=== PATIENT | female | born 1975 | race Caucasian/White ===

== ENCOUNTER 2018-06-06 05:13 | Observation (INO) ==
[2018-06-06] MEDS ORDERED: ceFAZolin 2 GM IV; once IV.SIG PRN (05:27)
[2018-06-06] MEDS ORDERED: Gabapentin 300 MG Capsule PO PRN (05:28)
[2018-06-06] MEDS ORDERED: Chlorhexidine Gluconate 2% 1 Pack (2 Cloths) TOPICAL ONE (05:30)
[2018-06-06] MEDS ORDERED: Metoprolol Tartrate 25 MG Tablet PO ONE (05:30)
[2018-06-06] MEDS ORDERED: Sodium Chlor 0.9% Inj 500 ML IV.SIG SCH (06:00)
[2018-06-06] MEDS ORDERED: Sugammadex Inj 200 MG/2 ML Vial IV.PUSH ONE (06:50)
[2018-06-06] MEDS ORDERED: Lidocaine 1%/Epinephrine 1:100,000 Inj 30 ML Vial ONE (07:35)
[2018-06-06] MEDS ORDERED: Phenylephrine/NS 1000 MCG/10ML Syringe IV.PUSH ONE (07:35)
[2018-06-06] MEDS ORDERED: Lidocaine PF 1% Inj 5 ML Syringe OTHER ONE (07:35)
[2018-06-06] MEDS ORDERED: Zolpidem Tartrate 5 MG Tablet PO PRN (11:13)
--- NOTE | 2018-06-06 11:13 | P.OP ---
Date of procedure: 06/06/18 Surgeon: Mani Gardiner MD Operation and Findings: Preoperative diagnosis: 1. Enlarged fibroid uterus 2. Heavy menstrual bleeding 3. Anemia Postop diagnosis 1. Same as above status post hysterectomy Procedure 1. Total laparoscopic hysterectomy, bilateral salpingectomy, diagnostic cystoscopy 2. Lysis of adhesions greater than [address] Mani Gardiner Interventional Radiology Rn: Dr. Jill Salinas was present and scrubbed throughout the case, also [place] OR scrub staff assisted Findings: 1. Enlarged fibroid uterus, weighing approximately 600 g, normal appearing otherwise, normal fallopian tubes and ovaries bilaterally. Pelvis with adhesions of the sigmoid densely adhered to the left pelvic brim. Otherwise pelvis and abdomen free of adhesions. 2. Normal-appearing liver and gallbladder, nonvisualized appendix 3. Normal cystoscopy, bilateral ureteral efflux appreciated Anesthesia: General endotracheal Specimen: Uterus, cervix, fallopian tubes to pathology together, routine Estimated blood loss: 1 L Fluid replacement: 1700 cc lactated Ringer's Urine output: 800 cc clear urine DVT prophylaxis: Sequential compression devices throughout the case Antibiotics: 2 g Ancef, however this was given greater than 60 minutes prior to incision, 2 g Ancef was redosed at 4 hours. Counts: correct x2 Time out done: yes Disposition: Stable to PACU Indications: This patient is a 42-year-old who was seen in outpatient setting for the above diagnoses, we discussed options and she elected for the above procedure. Please see H&P and consent for further details. Description of procedure: The patient was taken to the operating room and placed under general anesthesia she was positioned in lithotomy position with Sha stirrups with both arms tucked. The abdomen and vagina were prepped and draped in sterile fashion. A Cruz was inserted. Uterus was sounded to 11 cm a large V care manipulator was placed with a suture applied to the cervix for traction. Attention was turned to the abdomen. A total of 15 cc of 1% lidocaine with epinephrine was used for each port site. A 5 mm umbilical incision was made and with direct optical view technique the abdomen was entered and insufflated with CO2 gas, the patient was placed in Trendelenburg. 2 left lower quadrant and one right lower quadrant 5 mm trocars were inserted with direct intra abdominal visualization. A survey was performed with the above findings. A bilateral salpingectomy was performed using the Enseal and the specimens were removed from the abdomen. Some adhesions were lysed of the sigmoid colon the left pelvic brim easily with the Enseal device. The left round ligament was transected and the anterior broad ligament opened and a bladder flap was developed with the Enseal and the same was done on the contralateral side. The posterior broad ligament was opened and the uterine arteries were skeletonized. The uterine arteries were clamped desiccated and transected with the Enseal bilaterally. Using monopolar energy a colpotomy was made. The umbilical skin site was extended approximately 3 cm vertically as well as the fascia, a standard size gel point device with Lee retractor were inserted and applied and the uterus was placed within a [employer] containment bag. The bag was elevated to the umbilicus and hand morcellated using a ExCITE technique. The vaginal cuff was closed with running 2-0 unidirectional strata fix suture incorporating the uterosacrals for support. The abdomen was irrigated and the surgical sites were found to be hemostatic. A cystoscopy was performed with a 30 laparoscope using normal saline. No damage to the bladder was appreciated and bilateral efflux was noted. The Cruz was left removed the abdomen was desufflated and the trocars removed. The fascia at the umbilicus was closed with running 0 Vicryl and the skin of all sites was closed with 4-0 Monocryl and skin glue applied overlying. The patient was awoken from anesthesia and transferred to PACU.
[2018-06-06] MEDS ORDERED: Morphine Sulfate Inj 8 MG/ML Vial IV.PUSH PRN (11:16)
[2018-06-06] MEDS ORDERED: Ketorolac Inj 30 MG/ML (IVP) Vial IV.PUSH ONE (11:16)
[2018-06-06] MEDS ORDERED: Acetaminophen 325 MG Tablet PO PRN (11:16)
[2018-06-06] MEDS ORDERED: fentaNYL Citrate Inj 100 MCG/2 ML Ampul ONE (11:30)
[2018-06-06] MEDS ORDERED: *Meperidine Inj 25 MG/ML Vial PERIprocedural Use ONLY ONE (11:32)
[2018-06-06 11:39] VITALS: RESP 18
[2018-06-06] MEDS ORDERED: Ketorolac Inj 30 MG/ML (IVP) Vial ONE (11:41)
[2018-06-06 11:57] LABS: Hematocrit 29.8 % (35.0-46.0); Hemoglobin 10.1 gm/dL (11.6-15.3)
[2018-06-06 12:59] VITALS: PULSE 96; O2SAT 98
[2018-06-06] MEDS ORDERED: Gabapentin 100 MG Capsule PO SCH (13:00)
[2018-06-06] MEDS ORDERED: Ketorolac Inj 30 MG/ML (IVP) Vial IV.PUSH SCH (18:00)
--- NOTE | 2018-06-06 19:23 | P.PNOB ---
Assessment and Plan - Postoperative Procedures Operation Date: 06/06/18 07:30 Actual Procedures Side Surgeon p TOTAL LAPAROSCOPIC HYSTERECTOMY, BILATERAL SALPINGECTOMY, CYSTOSCOPY Not Applicable Mani Gardiner MD 42 yo s/p TLH, BS, cysto 1. POD #0, AF, VSS, post op Hb stable, pt doing very well and prepared to d/c home, discussed post op precautions, expectations and follow up, rec to call if her dressing becomes bloody again. - Time Spent With Patient Total time spent is greater than 50% in coordination of care (as documented) at patient's floor/unit and/or counseling patient: Subjective Interval history: doing well, pain controlled, TPO no n/v, no vaginal bleeding, ambulating w/o issues, voiding. Physical Exam Vital signs: Temp Pulse Resp BP Pulse Ox 97.9 F 96 H 18 100/55 L 98 06/06/18 12:15 06/06/18 12:15 06/06/18 12:15 06/06/18 12:15 06/06/18 12:15 - Constitutional no acute distress - Routine Respiratory Exam Present: CTA bilaterally - Routine Abdominal Exam Present: soft Comments: non tender, port sites C/D/I, umbilicus tegadem soaked with blood, removed and small ooze from raw edge of exposed inferior part of closure, applied pressure and stopped, reapplied pressure dressing. light bruising around the umbilicus. - Routine Exam Comments: deferred - Detailed Neurological Exam: Coma Scale Eye Opening: Spontaneous - Urinary Catheter Management Indwelling Urethral Catheter Cath placed during this visit: yes, but has since been removed by the nurse Urethral indwelling: No Insertion date: 06/06/18 Insertion time: 08:07 Removal date: 06/06/18 Removal time: 10:30 Results - Labs CBC & Chem 7: 06/06/18 11:51 Labs: Laboratory Results - last 24 hr 06/06/18 06/06/18 05:45 11:51 Hgb 10.1 L Hct 29.8 L Blood Type O Positive Blood Type Recheck Not needed Antibody Screen Negative MTS Gel Crossmatch See Detail
--- NOTE | 2018-06-06 19:24 | P.DS ---
Date of admission: 06/06/18 11:13 Primary care physician: PROVIDER NON STAFF Brief History from admission: 42 yo presented for GILBERTO RODRÍGUEZ and did well on POD#0 and was d/c home DS: Summary Hospital Course: see brief history - Time Spent with Patient Total time spent providing and/or coordinating discharge services: Less than 30 minutes - Quality: VTE Deep Vein Thrombosis/Pulmonary Embolism Present on Admission: No Exam Vital signs: Vital Signs 06/06/18 05:35 06/06/18 11:20 06/06/18 11:45 Temperature 98.5 F 97.8 F Pulse Rate 81 97 H 91 H Respiratory Rate 20 18 18 Blood Pressure 115/65 114/63 111/65 Pulse Oximetry 99 97 97 06/06/18 12:00 06/06/18 12:13 06/06/18 12:15 Temperature 97.8 F 97.9 F Pulse Rate 84 91 H 96 H Respiratory Rate 18 18 18 Blood Pressure 107/63 106/63 100/55 L Pulse Oximetry 97 97 98 Intake & Output 06/06/18 06/06/18 06/07/18 06:59 18:59 06:59 Intake Total 100 / 100 1750 / 1750 Output Total 3800 / 3800 Balance 100 / 100 -2050 / -2050 Weight 77.5 kg Intake: IV 100 / 100 1050 / 1050 Ofirmev Inj 1,000 mg In 100 ml 100 / 100 @ 400 mls/hr IV.SIG [employer] PRN Rx#:[id number] LR 1000 mL Inj 1,000 ML @ 30 1000 / 1000 mls/hr IV.SIG .Q24H [facility] Rx#: [id number] Ancef 2 GM Premix Inj 2 gm In 50 / 50 50 ml @ 100 mls/hr IV.SIG [employer] PRN Rx#:[id number] Anesthesia Amount 700 / 700 Output: Urine 2000 / 2000 Estimated Blood Loss 1000 / 1000 Urine Amount (Catheter) 800 / 800 Indwelling Urethral Catheter 800 / 800 Other: Weight On Admission 77.5 kg Results Procedures completed during hospitalization: GILBERTO RODRÍGUEZ, cysto Pending studies at discharge: Pending at discharge 06/06/18 13:33 Surgical [PTH] Routine Labs on day of discharge: Labs from last 24 hours 06/06/18 06/06/18 11:51 05:45 Hgb 10.1 L Hct 29.8 L Blood Type O Positive Blood Type Recheck Not needed Antibody Screen Negative MTS Gel Crossmatch See Detail Discharge Plan - Discharge Disposition Patient Disposition: 01 Discharge Home - Discharge Condition Condition: Good - Discharge Order Discharge Orders: Discharge Order (Routine); Ordered 06/06/18 Ordered By: Mani Gardiner - Discharge Details Anticipated Discharge Date: 06/06/18 - Physicians Team Primary Care Provider: NON STAFF,PROVIDER Attending Provider: Mani Gardiner - Rxs /Orders / Referrals /Forms Prescriptions: Continue clonazepam 1 mg Tablet 1 mg PO DAILY escitalopram oxalate [Lexapro] 10 mg Tablet 10 mg PO DAILY lamotrigine [Lamictal] 200 mg Tablet 200 mg PO DAILY Discontinued norgestimate-ethinyl estradiol [Ortho Tri-Cyclen (28)] 0.18/0.215/0.25 mg-35 mcg (28) Tablet 1 tab PO DAILY Referrals: NON STAFF,PROVIDER [Primary Care Provider] - See Instructions - Discharge Instructions Patient Printed Instructions: Laparoscopic Hysterectomy (DC)
[2018-06-06 19:43] VITALS: BP 96/56; TEMP 99.3
[2018-06-06] MEDS ORDERED: Docusate Sodium 100 MG Capsule PO SCH (21:00)
== END 2018-06-06 19:47 | disposition home or self-care (01) ==
LOC: HSDI 05:13 → HSDC 05:13 → H1EA 12:13
PROVIDERS: ADMIT Obstetrics & Gynecology; ATTEND Obstetrics & Gynecology